=== PATIENT | female | born 1975 | race Caucasian/White ===

== ENCOUNTER 2017-05-07 07:18 | Day surgery (SDC) | payer OTHER ==
[2017-05-07] MEDS ORDERED: Ketorolac 30 MG/ML SDV IVPUSH ONE (07:19)
[2017-05-07] MEDS ORDERED: Ondansetron 4 MG/2 ML SDV IV ONE (07:19)
[2017-05-07] MEDS ORDERED: fentaNYL 100 MCG/2 ML SDV IV ONE (07:19)
[2017-05-07] MEDS ORDERED: Midazolam 1 MG/ML 2 ML SDV IV ONE (07:19)
[2017-05-07] MEDS ORDERED: Lidocaine 2% 20 ML MDV INJECT ONE (07:19)
[2017-05-07] MEDS ORDERED: Dexamethasone 4 MG/ML SDV IV ONE (07:19)
[2017-05-07] MEDS ORDERED: Propofol 200 MG/20 ML SDV IV ONE (07:19)
[2017-05-07] MEDS ORDERED: Lidocaine 1% 30 ML SDV ONE (07:32)
[2017-05-07] MEDS ORDERED: Lactated Ringers 1,000 ML IV SCH (07:45)
--- NOTE | 2017-05-07 10:43 | OR ---
DATE: 05/07/2017 PREOPERATIVE DIAGNOSIS: Right breast mass. POSTOPERATIVE DIAGNOSIS: Right breast mass. PROCEDURES: Excisional biopsy of right breast mass. ANESTHESIA: General. ESTIMATED BLOOD LOSS: None. SPECIMEN: Breast mass. FINDINGS: Multiple large breasts cysts and thickened breast tissue. RECOMMENDATION: Depending on pathology followup with the primary care provider. INDICATION FOR PROCEDURE: This 41-year-old female, referred initially to my clinic for evaluation of a mammogram that shows multiple cysts in the upper outer quadrant of the right breast. However, the mammogram does not show suspicion for malignant disease, and she is a BI-RADS 2, which would indicate normal followup. However, on physical examination, she does have discrete irregular mass that does not by palpation feel like a cyst, and even though it did not show on mammogram, I recommended a biopsy. PROCEDURE: After adequate preparation, a transverse incision was made over this palpable 2 to 3 cm mass in the right breast. This is in the 9 o'clock position and somewhat lower than the reported upper outer quadrant of the breast. This was taken down to breast tissue, and using cautery an elliptical incision was made around this firm area. Several larger 1 to 2 cm cysts were encountered in the breast tissue. The cyst wall was obliterated and the mass was completely removed. Hemostasis was controlled. There are no other suspicious lesions palpable in the deeper breast tissue. Vicryl suture was used to close the breast space and Monocryl for the skin. [facility] /[id number]
== END 2017-05-07 11:42 | disposition home or self-care (01) ==
LOC: DL.SDS 07:18
PROVIDERS: ATTEND Surgery
DX: N60.01 Solitary cyst of right breast (principal); I10 Essential (primary) hypertension; K21.9 Gastro-esophageal reflux disease without esophagitis; E03.9 Hypothyroidism, unspecified; F32.9 Major depressive disorder, single episode, unspecified; Z87.891 Personal history of nicotine dependence; Z88.1 Allergy status to other antibiotic agents
CPT/HCPCS: 19120; 81025; J1100; J1885; J2250; J2405; J2704; J3010; J7120